=== PATIENT | male | born 2000 | race Caucasian/White ===

== ENCOUNTER 2022-03-14 01:06 | Observation (INO) ==
[2022-03-14] MEDS ORDERED: SODIUM CHLORIDE 0.9% 1,000 ML IV STA (01:24)
[2022-03-14 01:40] LABS: Basophils % 0.1 % (0.0-0.8); Eosinophils # 0.1 10*3/uL (0.0-0.87); Eosinophils % 1.3 % (0.00-10.9); Hematocrit 47.3 VOL% (42.0-52.0); Hemoglobin 15.9 GM/DL (14.0-18.0); Immature Granulocytes % 0.3 %; Immature Granulocytes Absolute 0.02 #; Lymphocytes # 1.4 10*3/uL (1.4-4.0); Lymphocytes % 18.3 % (21.2-54.2); Mean Corpuscular HGB Conc 33.6 GM/DL (32-36); Mean Corpuscular Volume 86.6 FL (87-102); Mean Platelet Volume 10.7 FL (9.6-12.0); Monocytes # 0.8 10*3/uL (0.11-0.8); Platelet Count 178 T/CUMM (130-400); Red Blood Count 5.46 MC/CUMM (3.8-5.5); White Blood Count 7.7 T/CUMM (4-12)
[2022-03-14 01:47] LABS: ABG Base Excess -0.2 MMOL/L (-2.5-2.5); ABG HCO3 24.3 MMOL/L (20-26); ABG Oxygen Saturation 98.1 % (95-100); ABG PCO2 37.1 MM HG (35-48); ABG PH 7.418 (7.35-7.45); ABG TCO2 20.2 MMOL/L (23-27)
[2022-03-14] MEDS ORDERED: ONDANSETRON 4 MG/2 ML VIAL IV ONE (01:49)
[2022-03-14] MEDS ORDERED: MORPHINE 2 MG/1 ML SYRINGE IV STA (01:49)
[2022-03-14 01:53] LABS: Albumin 3.7 G/DL (3.4-5.0); Bilirubin,Total 0.4 MG/DL (0.20-1.00); Calcium 8.8 MG/DL (8.5-10.1); Osmolality,Calculated 278.7 MOS/KG (273-304); Potassium 3.8 MMOL/L (3.5-5.1); Total Protein 6.7 G/DL (6.4-8.2)
[2022-03-14] MEDS ORDERED: PROMETHAZINE INJ 12.5 MG in SODIUM CHLORIDE 0.9% 50 ML IV STA (02:39)
[2022-03-14] MEDS ORDERED: PROMETHAZINE 25 MG/1 ML VIAL ONE (02:40)
[2022-03-14 03:02] LABS: RBC,Urine 1 /HPF (0-4)
[2022-03-14 03:03] LABS: Bilirubin,Urine Negative (Negative); Blood, Urine Negative (Negative); Glucose,Urine (UA) Negative (Negative); Ketones,Urine 15 mg/dL (Negative); Nitrite,Urine Negative (Negative); Protein,Urine Negative (Negative); Urine Appearance Clear (Clear); Urine Color Yellow (Yellow); Urine Urobilinogen 0.2 eU/dL (<2.0)
[2022-03-14] MEDS ORDERED: PROMETHAZINE 25 MG/1 ML VIAL IM PRN (03:17)
[2022-03-14] MEDS ORDERED: MORPHINE 2 MG/1 ML SYRINGE IV PRN (03:17)
[2022-03-14] MEDS ORDERED: LACTATED RINGERS 1,000 ML IV SCH (03:30)
[2022-03-14 07:28] VITALS: BP 112/57
[2022-03-14] MEDS ORDERED: PANTOPRAZOLE 40 MG TABLET PO SCH (09:00)
== END 2022-03-14 11:22 | disposition home or self-care (01) ==
LOC: N.ED 01:06 → N.EDINP 01:06 → N.2W 04:20
PROVIDERS: ADMIT Emergency Medicine; ATTEND Emergency Medicine